=== PATIENT | male | born 1950 | race Caucasian/White ===

== ENCOUNTER 2020-05-11 15:56 | Emergency (ER) | payer MEDICARE, SELFPAY ==
[2020-05-11 16:03] VITALS: BP 141/85; PULSE 96; RESP 17; TEMP 36.9; O2SAT 96; BMI 28.2
--- NOTE | 2020-05-11 16:47 | XRR_ITS ---
PROCEDURE INFORMATION: Exam: XR Right Knee Exam date and time: 05/11/2020 4:49 PM Age: 69 years old Clinical indication: Patient HX: Pain swelling fluid in right knee. No known injury; Additional info: Knee pain and swelling TECHNIQUE: Imaging protocol: XR Right knee. Views: 3 views. COMPARISON: No relevant prior studies available. FINDINGS: Bones/joints: No acute fracture. No dislocation. Normal bone mineralization. Moderate knee joint effusion. Soft tissues: Small calcified enthesophytes at the quadriceps tendon insertion and at the origin and insertion of the patellar tendon. No soft tissue swelling. No radiopaque foreign body. Vasculature: Atherosclerotic changes in the visualized arteries. XR/XR knee RT 3V* [id number] IMPRESSION: 1. No acute fracture. Followup imaging recommended in 7-14 days if clinical concern for fracture persists. 2. Moderate knee joint effusion. 3. Incidental/nonacute findings are listed in the report.
[2020-05-11 17:48] LABS: Appearance Synovial Fluid CLOUDY (CLEAR); Color Synovial Fluid YELLOW (PALE YELLOW); WBC Synovial Fluid 28965 /uL (0-150)
[2020-05-11 17:49] LABS: PATH Referal YES; RBC Synovial Fluid 3 10^3/uL (0-0)
[2020-05-11 18:14] LABS: Crystals, Fluid SENT
--- NOTE | 2020-05-11 22:28 | ED_ITS ---
HPI - Extremity Problem General: Chief complaint: Extremity Problem,Nontraumatic Stated complaint: r knee pain/ sent from clinic Time Seen by Provider: 05/11/20 16:07 Source: patient Mode of arrival: ambulatory Limitations: no limitations History of Present Illness: HPI Narrative: 69-year-old gentleman who presents to the emergency department from his primary care provider's office. He said he developed knee pain about 4 days ago when he woke up from sleep. He denies any new trauma, falls, injuries. He denies any fever. He denies prior history of the same. He was sent here for evaluation MD Complaint: extremity pain and joint swelling Onset (ago): day(s) (4) Pain Consistency: constant Location: right and knee Severity scale (1-10): 10 Quality: stabbing Radiation: none Relieving factors: nothing Exacerbating factors: range of motion, weight bearing and palpation Associated symptoms: Reports arthralgias; Deny chest pain, fever(s), myalgias, rash or short of breath Review of Systems General: Reports: 10 or more systems reviewed and unremarkable except in HPI and below Const: Denies: fever(s) Eyes: Denies: change in vision or blurry vision ENMT: Denies: throat pain, enlarged tonsils, odynophagia, hoarseness, mouth pain or swelling of lips/tongue Card: Denies: chest pain Resp: Denies: dyspnea, productive cough or non-productive cough GI: Denies: abdominal pain, nausea or vomiting : Denies: flank pain, dysuria, urinary frequency, urinary urgency or urinary hesitancy Musc: Denies: neck pain, back pain or extremity swelling Skin/Breast: Denies: rash Neuro: Denies: headache(s), numbness in extremities or weakness in extremities Endo: Denies: polyuria, polydipsia or tired all the time PFS ED PFSH: Social History Smoking and tobacco status: never smoked Alcohol intake: never Physical Exam Const: COMMON NORMALS: no acute distress, average body habitus, patient oriented x3, no limitations, healthy appearing, alert and well nourished HENMT: COMMON NORMALS: normocephalic, atraumatic and moist oral mucous membranes HEAD & SCALP: normocephalic and atraumatic Neck/C-Spine: COMMON NORMALS: no meningeal signs and no JVD Resp: COMMON NORMALS: normal respiratory effort, No retractions, No use of ac cessory muscles, clear to auscultation bilaterally and percussion normal AUSCULTATION: clear to auscultation bilaterally PERCUSSION: percussion normal Cardio: COMMON NORMALS: no JVD, regular rate, regular rhythm, S1 normal heart sound present, S2 normal heart sound present, No gallops present (Cardio), No clicks present (Cardio), No murmurs present (Cardio), No rub (Cardio) and Peripheral pulses 2+ throughout RATE: regular rate RHYTHM: regular rhythm HEART SOUNDS: S1 normal heart sound present and S2 normal heart sound present PERIPHERAL PULSES: Peripheral pulses 2+ throughout GI: COMMON NORMALS: Normal to inspection, nondistended, normoactive bowel sounds present, Soft to palpation, non-tender, No hepatosplenomegaly present, no masses and no bruits PALPATION: Yes Soft to palpation and Yes No hepatosplenomegaly present Extremity: COMMON NORMALS: normal to inspection, full ROM, capillary refill normal, no calf tenderness and no pedal edema RIGHT LOWER EXTREMITY: Yes knee joint Right knee: Yes inspection (Obvious swelling, mild erythema.), Yes palpation (Tender medially and laterally. There is effusion in the suprapatellar region which feels significant. The knee is warm, erythematous, tender raising concerns for septic arthritis), Yes ROM (Reduced range of motion due to pain) and Yes neurovascular exam (Neurovascular status intact) Neuro: COMMON NORMALS: patient oriented x3 SENSORIUM/ORIENTATION: Yes alert MENINGEAL SIGNS: Yes no meningeal signs Skin: COMMON NORMALS: no rashes or lesions noted, no wounds, turgor normal, no jaundice, no petechiae and no mottling GENERAL SKIN EXAM: no rashes or lesions noted and turgor normal Procedures Joint Aspiration/Injection Joint Asp./Inject. 1: Time Out Performed: Yes Side of body: right Joint Aspirated: knee Ultrasound Guidance: Yes Skin Prep: sterile prep and drape Local Anesthetic: lidocaine 1% Amount of anesthesia used (mL): 5 Needle Size Used: 18G Fluid Obtained: turbid Total fluid obtained (mL): 20 Patient Tolerated Procedure: well Complications: none Additional Comments: Patient remarks that the swelling had reduced in size. Course ED course: 69-year-old gentleman who presents to the emergency department with right knee pain and swelling. Examination was consistent with septic arthritis and the patient was advised that he needed urgent surgery. I spoke with the orthopedic surgeon and he accepted to admit the patient for surgery in the morning. As soon as I examined the patient the first time I explained to him my concerns of septic arthritis and that if that was the case he would need admission and surgery to washout his knee. He had voiced understanding at that time, however when I informed him of my conversation with the orthopedic surgeon the patient shortly after I told the nurse that he had to leave. When I spoke to him he had worn his clothes and stated that he had to get something from his car which he refused to tell me what he was and that it was very personal. I explained to him the risks of leaving the emergency department, however the patient insisted, was unwilling to listen to me, his nurse, charge nurse, security. He voiced understanding of the risks involved in leaving including complete destruction of the knee, sepsis and even . He proceeded to sign out AGAINST MEDICAL ADVICE. Consultations: Consultation #1: Dr. Martinez, orthopedic surgeon. He kindly accepted the patient to his service Time: 18:15 Vital Signs: Vital signs: Vital Signs Temperature 98.5 F 05/11/20 16:03 Pulse Rate 96 05/11/20 16:03 Respiratory Rate 17 05/11/20 16:03 Blood Pressure 141/85 05/11/20 16:03 Pulse Oximetry 96 05/11/20 16:03 MDM - Extremity (Nontraumatic) MDM Narrative: Medical decision making narrative: 69-year-old patient with sep tic arthritis. The patient was advised to be admitted but he refused and signed out AGAINST MEDICAL ADVICE. I explained the risks of signing out AGAINST MEDICAL ADVICE to him including destruction of his knee, sepsis, . Voiced understanding but still left Medical Records: Attestation: I reviewed the patient's medical records. Lab Data: Attestation: I reviewed the patient's lab results. Labs: Lab Results 05/11/20 05/11/20 Range/Units 16:30 16:30 Differential Comme nt Cancelled Fluid Color Cancelled Fluid Appearance Cancelled Fluid WBC Cancelled Fluid RBC Cancelled Fluid Tot Cell Cou nt Cancelled Fld Polynuclear WB Cs # Cancelled Fld Polynuclear WB Cs % Cancelled Fl Mononucl WBCs # (Auto) Cancelled Fl Mononuclear % A uto Cancelled Fluid Other Cells Cancelled Fluid Crystals Sent Synovial Color Yellow (PALE YELLOW) Synovial Appearanc e Cloudy (CLEAR) Synovial WBC 83351 H (0-150) /uL Synovial RBC 3 H (0-0) 10^3/uL Synovial Mononucle ar 1998.585 10^3/uL Synov Polynuclear WBCs 61001.415 10^3/uL Synovial Other Vikki ls Not Reportable Synovial Polynucle ar % 93.100 % Synovial Mononucle ar % 6.900 % Path Cons w/Slide Yes Imaging Data^: Xray Ortho: Radiologist's impression: [place] [address] XRay Report Signed Patient: Hali Erwin #: [id number] : 1Acct#:[id number] Age/Sex: 69 / MADM Date: 05/11/20 Loc: ERRoom/Bed: Attending Dr: Ordering Provider/Ordering MD: Anjel Hoffman MD, [facility] Date of Service: 05/11/20 Procedure(s): XR knee RT 3V* [id number] Accession Number(s): [id number] Report Number: [id number] PROCEDURE INFORMATION: Exam: XR Right Knee Exam date and time: 05/11/2020 4:49 PM Age: 69 years old Clinical indication: Patient HX: Pain swelling fluid in right knee. No known injury; Additional info: Knee pain and swelling TECHNIQUE: Imaging protocol: XR Right knee. Views: 3 views. COMPARISON: No relevant prior studies available. FINDINGS: Bones/joints: No acute fracture. No dislocation. Normal bone mineralization. Moderate knee joint effusion. Soft tissues: Small calcified enthesophytes at the quadriceps tendon insertion and at the origin and insertion of the patellar tendon. No soft tissue swelling. No radiopaque foreign body. Vasculature: Atherosclerotic changes in the visualized arteries. XR/XR knee RT 3V* [id number] IMPRESSION: 1. No acute fracture. Followup imaging recommended in 7-14 days if clinical concern for fracture persists. 2. Moderate knee joint effusion. 3. Incidental/nonacute findings are listed in the report. Dictated By:Ami Islas MD Signed By:Ami Islas MDSigned Date/Time:05/11/201714 DD/ 13 Discharge Plan Discharge Patient Disposition: Left Against Medical Advice Clinical Impression: Septic arthritis of knee, right Prescriptions: No Action tamsulosin 0.4 mg capsule 0.4 mg PO DAILY RF: 0 pantoprazole 40 mg tablet,delayed release (DR/EC) 40 mg PO DAILY RF: 0 valsartan 40 mg tablet 40 mg PO BID RF: 0 valsartan 80 mg tablet 80 mg PO DAILY RF: 0 primidone 50 mg tablet 125 mg PO BID RF: 0 pregabalin 50 mg capsule 50 mg PO DAILY RF: 0 tramadol 50 mg tablet 50 mg PO BID PRNRF: 0 Interventions: ED Discharge Assessment Last Done: 05/11/20 18:28 ED Charges Last Done: 05/11/20 18:28 Discharge Date/Time: 05/11/20 18:30 Coding Level of Care Code ED [facility] [employer]utter for Johanne Bell
== END 2020-05-11 18:30 | disposition left against medical advice (07) ==
PROVIDERS: Emergency Provider Family Medicine
DX: M00.861 Arthritis due to other bacteria, right knee (principal); Z53.21 Procedure and treatment not carried out due to patient leaving prior to being seen by health care provider
CPT/HCPCS: 12345; 20610; 73562; 80500; 87070; 87075; 87205; 89050; 96365; 96375; 99283; 99284